=== PATIENT | male | born 1950 | race Caucasian/White ===

== ENCOUNTER 2018-03-23 07:09 | Inpatient (IN) | payer MEDICARE ==
[2018-03-23] MEDS ORDERED: ONDANSETRON HCL IV 4 MG/2 ML VIAL IVP ONE ×2 (07:17→15:39)
[2018-03-23] MEDS ORDERED: 0.9 % SODIUM CHLORIDE 1,000 ML BAG IV ONE (07:17)
[2018-03-23] MEDS ORDERED: LORAZEPAM 2 MG/ML VIAL IV ONE ×2 (07:18→08:22)
[2018-03-23] MEDS ORDERED: CLONIDINE HCL 0.1 MG TABLET PO ONE (07:18)
--- NOTE | 2018-03-23 07:23 | Emergency Department Record ---
History of Present Illness - General Chief Complaint: General Stated Complaint: WITHDRAWL Time Seen by Provider: 03/23/18 07:17 Source: Patient Mode of Arrival: Ambulatory Limitations: No limitations - History of Present Illness Initial comments: 67 yo male presents with concerns about narcotic withdrawal. The patient states he has been on Methadone for many years. His primary care physician Dr Montiel no longer is in practice. The patient states this is due to issues with DAISHA violations. His methadone was abruptly cut off. His doctor's office closed on March 17. He has a new PCP at the [facility]. His appointment is April 01. He was given a prescription for his regular medications prior first appointment but not for his methadone. His last does of methadone was at 8am yesterday. He had started weaning on the by cutting his pills into smaller increments. He is starting to have withdrawal like symptoms. He is weak, nauseated and shaky. -: Days(s) (1) Location: Other Radiation: Non-Radiating Quality: Other (weak and shaky) Consistency: Constant Improves with: None Worsens with: Other (Out of methadone) Associated Symptoms: Malaise, Weakness Treatments Prior to Arrival: None - Adolfo Coma Scale Eye Response: (4) Open spontaneously Motor Response: (6) Obeys commands Verbal Response: (5) Oriented Adolfo Total: 15 - Related Data Allergies Allergy/AdvReac Type Severity Reaction Status Date / Time Penicillins Allergy HIVES Verified 07/23/16 17:34 codeine AdvReac NAUSEA AND Verified 07/23/16 17:34 VOMITING Travel Screening - Travel/Exposure Within Last 30 Days Have you traveled within the last 30 days?: No Review of Systems Constitutional: Reports: Chills, Malaise, Weakness Eyes: Denies: Eye discharge ENT: Denies: Congestion, Throat pain Respiratory: Denies: Cough Cardiovascular: Denies: Chest pain, Palpitations, Syncope Endocrine: Reports: Fatigue Gastrointestinal: Reports: Nausea, Vomiting. Denies: Abdominal pain, Diarrhea Genitourinary: Denies: Dysuria, Frequency Musculoskeletal: Denies: Arthralgia, Back pain, Myalgia Skin: Denies: Bruising, Change in color, Rash Neurological: Reports: Weakness. Denies: Headache, Numbness Psychiatric: Reports: Anxiety Hematological/Lymphatic: Denies: Easy bleeding, Easy bruising, Swollen glands Past Medical History - SOCIAL HISTORY Smoking Status: Heavy tobacco smoker (>10/day) Alcohol Use: None Drug Use: None - RESPIRATORY Hx Respiratory Disorders: Yes Hx Bronchitis: Yes - CARDIOVASCULAR Hx Cardio Disorders: Yes Comment:: wpw - NEURO Hx Neuro Disorders: Yes Hx TIA: Yes (2013) - GI Hx GI Disorders: No - Hx Genitourinary Disorders: No - ENDOCRINE Hx Endocrine Disorders: Yes Hx Thyroid Disease: Yes (hypo) - MUSCULOSKELETAL Hx Musculoskeletal Disorders: Yes - PSYCH Hx Psych Problems: Yes Hx Anxiety: Yes Hx Depression: Yes - HEMATOLOGY/ONCOLOGY Hx Hematology/Oncology Disorders: No Family Medical History Any Significant Family History?: No Physical Exam - General General Appearance: Alert, Oriented x3, Cooperative, No acute distress Limitations: No limitations - Head Head exam: Atraumatic, Normal inspection - Eye Eye exam: Normal appearance. negative: Conjunctival injection, Scleral icterus - ENT ENT exam: Normal exam, Mucous membranes moist Ear exam: Normal external inspection Nasal Exam: Normal inspection Mouth exam: Normal external inspection - Neck Neck exam: Normal inspection, Full ROM. negative: Tenderness - Respiratory Respiratory exam: Normal lung sounds bilaterally. negative: Respiratory distress - Cardiovascular Cardiovascular Exam: Regular rate, Normal rhythm, Normal heart sounds - GI/Abdominal GI/Abdominal exam: Soft. negative: Tenderness - Rectal Rectal exam: Deferred - exam: Deferred - Extremities Extremities exam: Normal inspection, Full ROM, Normal capillary refill. negative: Tenderness - Back Back exam: Reports: Normal inspection, Full ROM. Denies: Muscle spasm, Rash noted, Tenderness - Neurological Neurological exam: Alert, Normal gait, Oriented X3, Reflexes normal - Psychiatric Psychiatric exam: Normal affect, Normal mood, Other (Calm with conversation ) - Skin Skin exam: Dry, Intact, Normal color, Warm Course Vital Signs 03/23/18 07:11 Temperature 98.0 F Pulse Rate 86 Respiratory 20 Rate Blood Pressure 165/104 Pulse Ox 98 - Reevaluation(s) Reevaluation #1: MAPS was completed No pattern of abuse His only Rx filled is Methadone. 03/23/18 08:07 The UDS is negative for any positives 03/23/18 08:19 03/23/18 08:22 The shakiness has continued. No nausea or pain. 03/23/18 08:22 03/23/18 08:28 The patient was asked what his future wishes are regarding methadone. He states that if possible he would like to be off the medication and continue without out it. He has been on the methadone since 2004. He does not suffer from significant pain. 03/23/18 09:24 Social Work was contacted for resources for subacute detox assistance. 03/23/18 09:25 [facility] called. They do not handle Medicare. 03/23/18 09:34 The patient is shaky, restless, and pacing around. Morphine ordered. 03/23/18 09:40 [facility] called. They do not handle methadone. The [facility] clinic was contacted. They do not handle methadone for pain withdrawal. The patient had called the [facility] as well without success. [facility] was called. They do not handle inpatient detox. Only outpatient. 03/23/18 09:51 [facility] called with no call back. 03/23/18 09:55 No Medicare beds available in [place]. [facility] in [facility] was contacted. No Medicare patient care provided. All current contacts of substance abuse providers has not yielded and available inpatient bed. [facility] inpatient contacted. No beds available. They do take Medicare. The patient fell in his room. He was getting up to go to the restroom. He was again informed to use his call light. He had been informed to stay in bed prior. he has tailbone tenderness. No head injury or pain. 03/23/18 10:06 03/23/18 10:16 At this point he will require admission until follow up can be established Linda Jones of the admission service for supportive care for his withdrawal Social Work will continue to be involved to aid in follow up/placement 03/23/18 10:23 The vitals are stable, no altered mental status. Stable for admission with ongoing supportive care. 03/23/18 11:10 Linda Gudino. He accepts the patient for supportive care and ongoing goal of establishing follow up care for his methadone use 03/23/18 11:21 [facility] called. They do not take medicare but do take weekly hardin payments of $[address] [facility] is not taking new patients. They have a wait list currently. Message left at the [facility] Medical Decision Making - Lab Data Result diagrams: 03/23/18 07:25 03/23/18 07:25 Disposition Disposition: Admit Clinical Impression: Narcotic withdrawal Disposition: Still a Patient at [facility] Decision to Admit: Admit from ER Decision to Admit Date: 03/23/18 Decision to Admit Time: Condition: (2) Stable Time of Disposition: Quality - Quality Measures Quality Measures: N/A - Blood Pressure Screening Does Patient Have Any of the Following: No Blood Pressure Classification: Normal BP Reading Systolic Measurement: 103 Diastolic Measurement: 75 Screening for High Blood Pressure: < Normal BP, F/U Not Required > [[id number]] Pre-Hypertensive Follow-up Interventions: Referral to alternative/primary care provider.
[2018-03-23 07:32] LABS: BASO % 0.6 % (0-6); GRAN % 56.7 % (47-80); HEMATOCRIT 42.6 % (42.0-52.0); HEMOGLOBIN 14.7 gm/dl (14.0-18.0); LYMPH % 31.5 % (16-45); MEAN CELL VOLUME 91.6 fl (81-97); MEAN CORPUSCULAR HEMOGLOBIN 31.6 pg (27-33); MEAN CORPUSCULAR HGB CONC 34.5 g/dl (32-36); MEAN PLATELET VOLUME 9.1 fl (7.4-10.4); MONO % 5.2 % (0-9); PLATELET COUNT 322 K/uL (130-400); RED BLOOD COUNT 4.65 M/uL (4.40-5.70); WHITE BLOOD COUNT W/O DIFF 8.9 K/uL (4.2-12.2)
[2018-03-23 07:45] LABS: BILIRUBIN,TOTAL < 0.20 mg/dL (0.2-1.0); BLOOD UREA NITROGEN 21 mg/dL (8-23); CREATININE 1.1 mg/dL (0.7-1.2); EST GLOMERULAR FILTRATION RATE > 60 mL/min
[2018-03-23 07:46] LABS: TOTAL PROTEIN 7.4 g/dL (6.6-8.7)
[2018-03-23 07:48] LABS: GLUCOSE,RANDOM 102 mg/dL (74-109)
[2018-03-23 07:50] LABS: ALB/GLOB RATIO 1.5 (1.1-1.8); ALBUMIN 4.4 g/dL (4.0-5.0); ALKALINE PHOSPHATASE 83 U/L (40-129); ALT/SGPT 25 U/L (<41); AST/SGOT 22 U/L (10.0-50.0)
[2018-03-23 08:17] LABS: AMPHETAMINE SCREEN URINE NOT DETECTED; BARBITURATE SCREEN URINE NOT DETECTED; BENZODIAZEPINE SCREEN URINE NOT DETECTED; COCAINE SCREEN URINE NOT DETECTED; METHADONE SCREEN URINE NOT DETECTED; METHAMPHETAMINE SCREEN NOT DETECTED; OPIATE SCREEN URINE NOT DETECTED; OXYCODONE SCREEN URINE NOT DETECTED; PHENCYCLIDINE SCREEN URINE NOT DETECTED; PROPOXYPHENE SCREEN URINE NOT DETECTED; THC SCREEN URINE NOT DETECTED; TRICYCLIC ANTIDEPRESSANT SCRN NOT DETECTED
[2018-03-23] MEDS ORDERED: MORPHINE SULFATE 4MG/ML PREFILLED SYRINGE IVP ONE (09:33)
[2018-03-23] MEDS ORDERED: MORPHINE SULFATE 4MG/ML PREFILLED SYRINGE IVP PRN (15:39)
[2018-03-23] MEDS ORDERED: 0.9 % SODIUM CHLORIDE 1000ML 1,000 ML IV PRN (15:39)
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
[2018-03-23] MEDS ORDERED: SENNOSIDES/DOCUSATE SODIUM UD CAPSULE PO PRN (16:45)
[2018-03-23] MEDS ORDERED: POLYETHYLENE GLYCOL 3350 238GM BOTTLE PO PRN (16:46)
[2018-03-23] MEDS ORDERED: PNEUM 13-VAL/PF 0.5 ML IM ONE (18:50)
[2018-03-23] MEDS: CLONIDINE HCL 0.1 MG TABLET PO SCH (22:02)
[2018-03-24] MEDS: LORAZEPAM 2 MG/ML VIAL IV PRN ×6 (00:38→22:34)
[2018-03-24] MEDS: ACETAMINOPHEN 325 MG TAB PO PRN ×3 (02:35→23:09)
--- NOTE | 2018-03-24 06:57 | RADIOLOGY REPORT ---
EXAM: LUMBAR SPINE HISTORY: PATIENT FELL WITH TAILBONE PAIN. TECHNIQUE: AP and lateral views of the lumbar spine were obtained. Comparison: None. Encounter: Initial. FINDINGS: There is some narrowing of the fourth and fifth lumbar interspaces with associated hypertrophic spurring. Minor spurring more superiorly in the lumbar spine as well. No fracture of the lumbar spine identified and the lumbar spine appears otherwise essentially negative in the limited AP and lateral only study. There is a prominent amount of stool seen throughout the colon raising the possibility of constipation. There is questionably a 1.4 cm faintly calcified gallstone in the right upper quadrant. This could just be some bowel content as well. IMPRESSION: 1. DEGENERATIVE CHANGES IN THE LUMBAR SPINE PARTICULARLY AT THE LOWER TWO LUMBAR INTERSPACES. THE LUMBAR SPINE IS OTHERWISE NEGATIVE. 2. PROMINENT AMOUNT OF STOOL IN THE COLON. 3. QUESTIONABLE 1.4 CM GALLSTONE RIGHT UPPER QUADRANT. THIS COULD BE FURTHER ASSESSED WITH A FOLLOW-UP GALLBLADDER ULTRASOUND IF FELT CLINICALLY WARRANTED. JOB NUMBER: [id number] MTDD
[2018-03-24] MEDS ORDERED: LEVOTHYROXINE SODIUM 100 MCG TABLET PO SCH (07:00)
[2018-03-24] MEDS: PAROXETINE 30 MG PO SCH (07:00)
[2018-03-24 07:08] LABS: BASO % 0.2 % (0-6); EOS % 5.9 % (0-6); GRAN % 62.5 % (47-80); HEMATOCRIT 38.1 % (42.0-52.0); HEMOGLOBIN 12.7 gm/dl (14.0-18.0); LYMPH % 25.8 % (16-45); MEAN CELL VOLUME 93.2 fl (81-97); MEAN CORPUSCULAR HGB CONC 33.3 g/dl (32-36); MEAN PLATELET VOLUME 9.5 fl (7.4-10.4); MONO % 5.6 % (0-9); PLATELET COUNT 262 K/uL (130-400); RED BLOOD COUNT 4.09 M/uL (4.40-5.70); RED CELL DISTRIBUTION WIDTH 12.9 % (11.5-14.5); WHITE BLOOD COUNT W/O DIFF 8.6 K/uL (4.2-12.2)
[2018-03-24 07:23] LABS: BLOOD UREA NITROGEN 20 mg/dL (8-23); CREATININE 0.9 mg/dL (0.7-1.2); EST GLOMERULAR FILTRATION RATE > 60 mL/min; GLUCOSE,RANDOM 96 mg/dL (74-109)
[2018-03-24] MEDS ORDERED: POLYETHYLENE GLY 17 GM PACKET PO PRN (08:15)
[2018-03-24] MEDS ORDERED: PAROXETINE HCL 10 MG TABLET PO SCH (10:00)
[2018-03-24] MEDS ORDERED: NICOTINE 21 MG/24 HOUR PATCH TD SCH (10:00)
[2018-03-24] MEDS ORDERED: PAROXETINE HCL 40 MG PO SCH (10:00)
[2018-03-24] MEDS: ENOXAPARIN 40 MG/0.4 ML SYR SC SCH (10:01)
[2018-03-24] MEDS: CLONIDINE HCL 0.1 MG TABLET PO SCH ×2 (10:02→22:58)
[2018-03-24] MEDS ORDERED: LORAZEPAM 2 MG/ML VIAL IV ONE (15:31)
--- NOTE | 2018-03-24 20:27 | Physician Progress Note ---
Subjective - Date Date of Physician Progress Note: 03/24/18 - Subjective Subjective Comment: 03/24/18: Pt. resting in bed. He denies pain at this present time and appears comfortable. He is alert and orientated, cooperative. Case management in process of finding placement for pt. with salesforce specialist. Objective - Vital Signs Vital Signs: Vital Signs - Last 24 Hrs Temp Pulse Pulse Resp BP Pulse Ox 03/24/18 15:00 99 F 83 18 125/85 96 03/24/18 07:57 70 16 03/24/18 07:00 98.3 F 70 16 139/77 100 03/23/18 23:00 99.0 F 83 17 126/65 96 03/23/18 21:00 83 17 - General General Appearance: Alert, Oriented x3, Cooperative, No acute distress Limitations: No limitations - Head Head exam: Atraumatic, Normal inspection - Eye Eye exam: Normal appearance. negative: Conjunctival injection, Scleral icterus - ENT ENT exam: Normal exam, Mucous membranes moist Ear exam: Normal external inspection Nasal Exam: Normal inspection Mouth exam: Normal external inspection - Neck Neck exam: Normal inspection, Full ROM. negative: Tenderness - Respiratory Respiratory exam: Normal lung sounds bilaterally. negative: Respiratory distress - Cardiovascular Cardiovascular Exam: Regular rate, Normal rhythm, Normal heart sounds Peripheral Pulses: 2+: Radial (R), Radial (L), Dorsalis Pedis (R), Dorsalis Pedis (L) - GI/Abdominal GI/Abdominal exam: Soft. negative: Tenderness - Rectal Rectal exam: Deferred - exam: Deferred - Extremities Extremities exam: Normal inspection, Full ROM, Normal capillary refill. negative: Tenderness - Back Back exam: Reports: Normal inspection, Full ROM. Denies: Muscle spasm, Rash noted, Tenderness - Neurological Neurological exam: Alert, Normal gait, Oriented X3, Reflexes normal - Psychiatric Psychiatric exam: Normal affect, Normal mood, Other (Calm with conversation ) - Skin Skin exam: Dry, Intact, Normal color, Warm Assessment and Plan - Assessment and Plan (1) Narcotic withdrawal Current Visit: Yes Status: Acute Base Code: F11.23 - OPIOID DEPENDENCE WITH WITHDRAWAL Comment: 03/24/18 -symptom mgt with ativan and clonidine -morphine given in ER, cancelled for inpt -pt wants off methadone -outpt treatment and addition specialist for d/c- case management working on placement (2) Constipation Current Visit: Yes Status: Acute Base Code: K59.00 - CONSTIPATION, UNSPECIFIED Comment: 03/24/18 -Lumbar Xray shows significant constipation -pericolace BID -mirilax PRN (3) DVT prophylaxis Current Visit: Yes Status: Acute Base Code: [id number] - Comment: 03/24/18 -mod risk, lovenox 40mg sq (4) Full code status Current Visit: Yes Status: Acute Base Code: Z78.9 - OTHER SPECIFIED HEALTH STATUS Comment: 03/24/18 -full code (5) Hypothyroid Current Visit: Yes Status: Acute Base Code: E03.9 - HYPOTHYROIDISM, UNSPECIFIED Comment: 03/27/18: Pt. takes 200mcg of levothyroxine daily. TSH today was 83.67, T4 is pending. He remains in NSR on tele, vital signs stable. He is tolerating ativan and clonidine well for his agitation. Plan to observe closely for possible risk of thyroid storm/myxedema coma. Results - Labs Result Diagrams: 03/24/18 06:22 03/24/18 06:22 Labs Last 24 Hours: Laboratory Results - last 24 hr 03/24/18 03/24/18 03/24/18 06:22 06:22 06:22 WBC 8.6 RBC 4.09 L Hgb 12.7 L Hct 38.1 L MCV 93.2 MCH 31.0 MCHC 33.3 RDW 12.9 Plt Count 262 MPV 9.5 Gran % 62.5 Lymphocytes % 25.8 Monocytes % 5.6 Eosinophils % 5.9 Basophils % 0.2 Sodium 137 Potassium 4.2 Chloride 104 Carbon Dioxide 22.0 Anion Gap 11.0 BUN 20 Creatinine 0.9 Estimated GFR > 60 Random Glucose 96 Calcium 9.4 Magnesium 2.0 TSH 83.67 H Free T4 03/24/18 03/24/18 06:22 06:22 WBC RBC Hgb Hct MCV MCH MCHC RDW Plt Count MPV Gran % Lymphocytes % Monocytes % Eosinophils % Basophils % Sodium Potassium Chloride Carbon Dioxide Anion Gap BUN Creatinine Estimated GFR Random Glucose Calcium 9.5 Magnesium 2.0 TSH Free T4 0.432 L DVT/PE Assessment - Risk for VTE Risk for VTE: No Risk Level: Moderate Risk Assessment Date: 03/23/18 Risk Assessment Time: 16:50 VTE Orders Placed or Will Be Placed: Yes - Active Medicaitons Current Medications: Current Medications Acetaminophen (Tylenol 325mg) 650 mg PO Q6H PRN PRN Reason: PAIN/TEMP Last Admin: 03/24/18 10:06 Dose: 650 mg Clonidine HCl (Catapres) 0.1 mg PO BID [facility] Last Admin: 03/24/18 10:02 Dose: 0.1 mg Enoxaparin Sodium (Lovenox) 40 mg SC DAILY [facility] Last Admin: 03/24/18 10:01 Dose: Not Given Sodium Chloride () 1,000 mls @ 100 mls/hr IV .Q10H PRN PRN Reason: LARGE VOLUME IV Last Infusion: 03/24/18 10:08 Dose: Infused Lorazepam (Ativan) 1 mg IV Q4H PRN PRN Reason: ANXIETY Last Admin: 03/24/18 18:19 Dose: 1 mg Nicotine (Nicotine 21mg) 1 patch TD DAILY [facility] Patient Own Med: Levothyroxine 200 Mcg 1 each PO DAILYTHY [facility] Patient Own Med: (Paroxetine 30 Mg) 1 each PO DAILY [facility] Last Admin: 03/24/18 07:00 Dose: 1 each Polyethylene Glycol (Miralax) 17 gm PO DAILY PRN PRN Reason: Constipation Senna/Docusate Sodium (Senna Plus) 2 each PO BID PRN PRN Reason: Constipation AMI Plan - Labs Result Diagrams: 03/24/18 06:22 03/24/18 06:22
[2018-03-24] MEDS: NICOTINE 21 MG/24 HOUR PATCH TD SCH (23:55)
[2018-03-25] MEDS: LORAZEPAM 2 MG/ML VIAL IV PRN ×5 (04:37→21:52)
[2018-03-25] MEDS: LEVOTHYROXINE 200 MCG PO SCH (06:05)
[2018-03-25 06:55] LABS: BASO % 0.6 % (0-6); GRAN % 61.6 % (47-80); HEMATOCRIT 41.2 % (42.0-52.0); HEMOGLOBIN 14.2 gm/dl (14.0-18.0); LYMPH % 26.8 % (16-45); MEAN CORPUSCULAR HEMOGLOBIN 31.7 pg (27-33); MEAN CORPUSCULAR HGB CONC 34.5 g/dl (32-36); MEAN PLATELET VOLUME 9.3 fl (7.4-10.4); PLATELET COUNT 286 K/uL (130-400); RED BLOOD COUNT 4.48 M/uL (4.40-5.70); RED CELL DISTRIBUTION WIDTH 12.9 % (11.5-14.5); WHITE BLOOD COUNT W/O DIFF 8.4 K/uL (4.2-12.2)
[2018-03-25 07:13] LABS: ALB/GLOB RATIO 1.5 (1.1-1.8); ALKALINE PHOSPHATASE 75 U/L (40-129); ALT/SGPT 21 U/L (<41); AST/SGOT 22 U/L (10.0-50.0); BLOOD UREA NITROGEN 23 mg/dL (8-23); CREATININE 0.9 mg/dL (0.7-1.2); EST GLOMERULAR FILTRATION RATE > 60 mL/min; GLUCOSE,RANDOM 97 mg/dL (74-109); TOTAL PROTEIN 6.6 g/dL (6.6-8.7)
[2018-03-25] MEDS: CLONIDINE HCL 0.1 MG TABLET PO SCH ×2 (09:05→21:52)
[2018-03-25] MEDS: PAROXETINE 30 MG PO SCH (09:06)
[2018-03-25] MEDS: ENOXAPARIN 40 MG/0.4 ML SYR SC SCH (09:06)
[2018-03-25] MEDS: NICOTINE 21 MG/24 HOUR PATCH TD SCH (09:06)
[2018-03-25] MEDS: ACETAMINOPHEN 325 MG TAB PO PRN (09:12)
[2018-03-25] MEDS: EXCEDRIN EXTRA STRENGTH PO PRN ×2 (12:32→18:41)
--- NOTE | 2018-03-25 18:03 | Physician Progress Note ---
Subjective - Date Date of Physician Progress Note: 03/25/18 - Subjective Subjective Comment: 03/25/18: Pt. resting in bed. He denies pain at this present time and appears comfortable. He is alert and orientated, cooperative. Case management in process of finding placement for pt. with electronics specialist. Considering pain management referral in addition. Objective - Vital Signs Vital Signs: Vital Signs - Last 24 Hrs Temp Pulse Pulse Resp BP BP Pulse Ox 03/25/18 09:00 78 16 03/25/18 07:00 98.1 F 68 16 115/68 98 03/24/18 23:00 98.1 F 66 18 133/74 98 03/24/18 21:00 66 18 - General General Appearance: Alert, Oriented x3, Cooperative, No acute distress Limitations: No limitations - Head Head exam: Atraumatic, Normal inspection - Eye Eye exam: Normal appearance. negative: Conjunctival injection, Scleral icterus - ENT ENT exam: Normal exam, Mucous membranes moist Ear exam: Normal external inspection Nasal Exam: Normal inspection Mouth exam: Normal external inspection - Neck Neck exam: Normal inspection, Full ROM. negative: Tenderness - Respiratory Respiratory exam: Normal lung sounds bilaterally. negative: Respiratory distress - Cardiovascular Cardiovascular Exam: Regular rate, Normal rhythm, Normal heart sounds Peripheral Pulses: 2+: Radial (R), Radial (L), Dorsalis Pedis (R), Dorsalis Pedis (L) - GI/Abdominal GI/Abdominal exam: Soft. negative: Tenderness - Rectal Rectal exam: Deferred - exam: Deferred - Extremities Extremities exam: Normal inspection, Full ROM, Normal capillary refill. negative: Tenderness - Back Back exam: Reports: Normal inspection, Full ROM. 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 denies abdominal pain/cramping (3) DVT prophylaxis Current Visit: Yes Status: Acute Base Code: [id number] - Comment: 03/25/18 -mod risk, lovenox 40mg sq (4) Hypothyroid Current Visit: Yes Status: Acute Base Code: E03.9 - HYPOTHYROIDISM, UNSPECIFIED Comment: 03/25/18: Pt. takes 200mcg of levothyroxine daily. TSH on 03/25 was 83.67, T4 0.4. He remains in NSR on tele, vital signs stable. He is tolerating ativan and clonidine well for his agitation. (5) Full code status Current Visit: Yes Status: Acute Base Code: Z78.9 - OTHER SPECIFIED HEALTH STATUS Comment: 03/25/18 -full code Results - Labs Result Diagrams: 03/25/18 06:20 03/25/18 06:20 Labs Last 24 Hours: Laboratory Results - last 24 hr 03/24/18 03/24/18 03/25/18 06:22 06:22 06:20 WBC 8.4 RBC 4.48 Hgb 14.2 Hct 41.2 L MCV 92.0 MCH 31.7 MCHC 34.5 RDW 12.9 Plt Count 286 MPV 9.3 Gran % 61.6 Lymphocytes % 26.8 Monocytes % 6.0 Eosinophils % 5.0 Basophils % 0.6 Sodium Potassium Chloride Carbon Dioxide Anion Gap BUN Creatinine Estimated GFR Random Glucose Calcium 9.5 Magnesium 2.0 Total Bilirubin AST ALT Alkaline Phosphatase Total Protein Albumin Globulin Albumin/Globulin Ratio Free T4 0.432 L 03/25/18 06:20 WBC RBC Hgb Hct MCV MCH MCHC RDW Plt Count MPV Gran % Lymphocytes % Monocytes % Eosinophils % Basophils % Sodium 142 Potassium 4.3 Chloride 104 Carbon Dioxide 24.0 Anion Gap 14.0 BUN 23 Creatinine 0.9 Estimated GFR > 60 Random Glucose 97 Calcium 9.9 Magnesium Total Bilirubin 0.30 AST 22 ALT 21 Alkaline Phosphatase 75 Total Protein 6.6 Albumin 4.0 Globulin 2.6 Albumin/Globulin Ratio 1.5 Free T4 DVT/PE Assessment - Risk for VTE Risk for VTE: No Risk Level: Moderate Risk Assessment Date: 03/23/18 Risk Assessment Time: 16:50 VTE Orders Placed or Will Be Placed: Yes - Active Medicaitons Current Medications: Current Medications Acetaminophen (Tylenol 325mg) 650 mg PO Q6H PRN PRN Reason: PAIN/TEMP Last Admin: 03/25/18 09:12 Dose: 650 mg Clonidine HCl (Catapres) 0.1 mg PO BID [facility] Last Admin: 03/25/18 09:05 Dose: 0.1 mg Enoxaparin Sodium (Lovenox) 40 mg SC DAILY [facility] Last Admin: 03/25/18 09:06 Dose: 40 mg Sodium Chloride () 1,000 mls @ 100 mls/hr IV .Q10H PRN PRN Reason: LARGE VOLUME IV Last Infusion: 03/24/18 10:08 Dose: Infused Lorazepam (Ativan) 1 mg IV Q4H PRN PRN Reason: ANXIETY Last Admin: 03/25/18 14:01 Dose: 1 mg Nicotine (Nicotine 21mg) 1 patch TD DAILY [facility] Last Admin: 03/25/18 09:06 Dose: 1 patch Patient Own Med: Levothyroxine 200 Mcg 1 each PO DAILYTHY [facility] Last Admin: 03/25/18 06:05 Dose: 1 each Patient Own Med: (Paroxetine 30 Mg) 1 each PO DAILY [facility] Last Admin: 03/25/18 09:06 Dose: 1 each Patient Own Med: Excedrin Extra Strength 2 each PO Q6H PRN PRN Reason: HEADACHE Last Admin: 03/25/18 12:32 Dose: 1 each Polyethylene Glycol (Miralax) 17 gm PO DAILY PRN PRN Reason: Constipation Senna/Docusate Sodium (Senna Plus) 2 each PO BID PRN PRN Reason: Constipation AMI Plan - Labs Result Diagrams: 03/25/18 06:20 03/25/18 06:20
[2018-03-25] MEDS ORDERED: CYCLOBENZAPRINE 10MG TABLET PO ONE (20:22)
[2018-03-26] MEDS ORDERED: LORAZEPAM 2 MG/ML VIAL IV ONE (00:03)
[2018-03-26] MEDS: LORAZEPAM 2 MG/ML VIAL IV PRN ×2 (03:38→09:41)
[2018-03-26] MEDS: LEVOTHYROXINE 200 MCG PO SCH (06:10)
[2018-03-26 06:37] LABS: BASO % 0.5 % (0-6); EOS % 4.6 % (0-6); HEMATOCRIT 41.1 % (42.0-52.0); HEMOGLOBIN 14.2 gm/dl (14.0-18.0); MEAN CELL VOLUME 90.9 fl (81-97); MEAN CORPUSCULAR HEMOGLOBIN 31.4 pg (27-33); MEAN CORPUSCULAR HGB CONC 34.5 g/dl (32-36); MONO % 5.9 % (0-9); PLATELET COUNT 292 K/uL (130-400); RED BLOOD COUNT 4.52 M/uL (4.40-5.70); RED CELL DISTRIBUTION WIDTH 12.8 % (11.5-14.5); WHITE BLOOD COUNT W/O DIFF 8.3 K/uL (4.2-12.2)
[2018-03-26 06:55] LABS: ALB/GLOB RATIO 1.5 (1.1-1.8); ALKALINE PHOSPHATASE 74 U/L (40-129); ALT/SGPT 23 U/L (<41); AST/SGOT 21 U/L (10.0-50.0); BLOOD UREA NITROGEN 25 mg/dL (8-23); EST GLOMERULAR FILTRATION RATE > 60 mL/min; GLUCOSE,RANDOM 103 mg/dL (74-109); TOTAL PROTEIN 6.6 g/dL (6.6-8.7)
[2018-03-26] MEDS: NICOTINE 21 MG/24 HOUR PATCH TD SCH (09:28)
[2018-03-26] MEDS: ENOXAPARIN 40 MG/0.4 ML SYR SC SCH (09:29)
[2018-03-26] MEDS: PAROXETINE 30 MG PO SCH (09:29)
[2018-03-26] MEDS: CLONIDINE HCL 0.1 MG TABLET PO SCH (09:29)
[2018-03-26] MEDS ORDERED: GABAPENTIN 300 MG CAPSULE PO SCH (10:00)
[2018-03-26] MEDS ORDERED: LORAZEPAM 0.5 MG TABLET PO SCH (12:00)
[2018-03-26] MEDS ORDERED: IBUPROFEN 600 MG TABLET PO PRN ×2 (14:41→16:34)
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
[2018-03-26] MEDS ORDERED: LORAZEPAM 0.5 MG TABLET PO PRN (16:33)
[2018-03-26] MEDS ORDERED: AMITRIPTYLINE 25 MG TABLET PO SCH ×2 (22:00)
[2018-03-27] MEDS ORDERED: GABAPENTIN 300 MG CAPSULE PO SCH (10:00)
[2018-03-27] MEDS ORDERED: CLONIDINE HCL 0.1 MG TABLET PO SCH (10:00)
== END 2018-03-26 17:05 | disposition home or self-care (01) | DRG 897 ==
LOC: ER 07:09 → MEDSURG 15:30
PROVIDERS: ADMIT Internal Medicine; ATTEND Internal Medicine
DX: F11.23 Opioid dependence with withdrawal (principal); K59.00 Constipation, unspecified; E03.9 Hypothyroidism, unspecified; F41.9 Anxiety disorder, unspecified; F32.9 Major depressive disorder, single episode, unspecified; Z86.73 Personal history of transient ischemic attack (TIA), and cerebral infarction without residual deficits; I45.6 Pre-excitation syndrome; F17.210 Nicotine dependence, cigarettes, uncomplicated
CPT/HCPCS: 72100; 80048; 80053; 80305; 82310; 83735; 84439; 84443; 85025; 93005; 96374; 96375; 99223; 99233; 99239; 99285; J1650; J2274; J2405; J7030